=== PATIENT | female | born 1965 | race Caucasian/White ===

== ENCOUNTER 2016-06-01 23:14 | Emergency (ER) | payer SELFPAY ==
[~2016-06-01] VITALS: Ht 172.7 cm; Wt 6.0 kg
[~2016-06-01 23:14] MED LIST: Z.0.NO CURRENT MEDS
[2016-06-01] MEDS ORDERED: SODIUM CHLOR 0.9% 1000 ML INJ 1,000 ML IV SCH (23:26)
[2016-06-01] MEDS ORDERED: LORazepam 2 MG/ML VIAL IV PUSH ONE (23:30)
[2016-06-01] MEDS ORDERED: MORPHINE SULFATE 4 MG/ML INJ IV PUSH ONE (23:30)
[2016-06-01] MEDS ORDERED: ONDANSETRON HCL 4 MG/2 ML VIAL IVP ONE (23:30)
[2016-06-01] MEDS ORDERED: SODIUM CHLORIDE 0.9% FLUSH 5 ML FLUSH IVF PRN (23:30)
[2016-06-01] MEDS ORDERED: NAPR220T95 PO (23:32)
--- NOTE | 2016-06-01 23:33 | PD ---
HPI . Abdominal pain Chief Complaint: Abdominal Pain Time Seen by Provider: 23:16 Travel History International Travel<30 days: No Contact w/Intl Traveler<30days: No History of Present Illness HPI Patient presents to us via [facility] with the chief complaint of left lower quadrant abdominal pain. She states that it started acutely at couple of hours ago. States that she had a bit of an upset stomach earlier and not had a bowel movement today so she took a Dulcolax. It was about 3 hours after that that she developed the left lower quadrant abdominal pain. She reports associated nausea. She denies fever. The pain comes and goes. She states that it feels very similar to pain that she had before associated with diverticulitis. PFSH Past Medical History Diminished Hearing: No Diverticulitis: Yes Menopausal: Yes Tubal Ligation: Yes Social History Alcohol Use: Yes (OCCASIONAL) Tobacco Use: Yes (1 PPD) Substance Use: Yes Allergies-Medications (Allergen,Severity, Reaction): Coded Allergies: Dilantin (Verified Allergy, Severe, 07/25/12) Soma (Verified Allergy, Severe, RASH, 07/25/12) Reported Meds & Prescriptions Reported Meds & Active Scripts Active Reported No Current Meds (Miscellaneous Medication) Misc Review of Systems Except as stated in HPI: all other systems reviewed are Neg General / Constitutional: No: Fever, Chills Gastrointestinal: Positive: Nausea, Abdominal Pain, No: Vomiting, Diarrhea Genitourinary: No: Urgency, Frequency, Dysuria Physical Exam Narrative GENERAL: This is an extremely histrionic woman. SKIN: Warm and dry. HEAD: Atraumatic. Normocephalic. EYES: Pupils equal and round. ENT: No nasal bleeding or discharge. Mucous membranes pink and moist. NECK: Trachea midline. Neck is supple. CARDIOVASCULAR: Regular rate and rhythm. Heart sounds are normal. RESPIRATORY: No accessory muscle use. Lungs are clear with full air movement throughout. GASTROINTESTINAL: Abdomen soft. Left lower quadrant tenderness. Nondistended. Positive bowel sounds. MUSCULOSKELETAL: No obvious deformities. No edema. NEUROLOGICAL: Awake and alert. No obvious cranial nerve deficits. Motor grossly within normal limits. Normal speech. PSYCHIATRIC: Histrionic behavior. Data Data Orders Complete Blood Count With Diff (06/01/16 23:26) Comprehensive Metabolic Panel (06/01/16 23:26) Lipase (06/01/16 23:26) Urinalysis - C+S If Indicated (06/01/16 23:26) Ct Abd/Pel W Iv Contrast(Rout) (06/01/16 23:26) Iv Access Insert/Monitor (06/01/16 23:26) Ecg Monitoring (06/01/16 23:26) Oximetry (06/01/16 23:26) Morphine Inj (Morphine Inj) (06/01/16 23:30) Ondansetron Inj (Zofran Inj) (06/01/16 23:30) Sodium Chlor 0.9% 1000 Ml Inj (Ns 1000 M (06/01/16 23:26) Sodium Chloride 0.9% Flush (Ns Flush) (06/01/16 23:30) Lorazepam Inj (Ativan Inj) (06/01/16 23:30) MDM Medical Decision Making Medical Screen Exam Complete: Yes Emergency Medical Condition: Yes Medical Record Reviewed: Yes (history of previous substance abuse) Differential Diagnosis Differential diagnosis of abdominal pain includes but is not limited to gastritis, pancreatitis, hepatitis, gastroenteritis, gallbladder disease, constipation, urinary retention, UTI, peptic ulcer disease, diverticulitis or appendicitis Narrative Course Patient presents by [facility] for the evaluation of left lower quadrant abdominal pain. I have ordered IV fluids, IV pain medication, IV anti-emetic and IV Ativan. Her care will be turned over to Dr. Sanders pending her workup. Diagnosis Primary Impression: Abdominal pain Qualified Code: R10.32 - Left lower quadrant pain Larisa Fountain MD Jun 01, 2016 23:33
[2016-06-01 23:39] VITALS: BP 110/64; PULSE 64; RESP 18; TEMP 97.6; O2SAT 99
[2016-06-01 23:41] VITALS: O2SAT 99
[2016-06-01 23:45] LABS: AUTOMATED NEUTROPHIL # 3.7 TH/MM3 (1.8-7.7); BASOPHIL # 0.1 TH/MM3 (0-0.2); BASOPHIL % 2.1 % (0.0-2.0); EOSINOPHIL # 0.1 TH/MM3 (0-0.4); EOSINOPHIL % 2.1 % (0.0-4.0); HEMATOCRIT 37.5 % (35.0-46.0); HEMO FLAGS DIFF FINAL; LYMPH % 31.8 % (9.0-44.0); LYMPHOCYTE # 2.1 TH/MM3 (1.0-4.8); MEAN CELL VOLUME 93.3 FL (80.0-100.0); MEAN CORPUSCULAR HEMOGLOBIN 31.4 PG (27.0-34.0); MEAN CORPUSCULAR HGB CONC 33.6 % (32.0-36.0); MONO % 8.4 % (0.0-8.0); NEUT % 55.6 % (16.0-70.0); PLATELET COUNT 170 TH/MM3 (150-450); RED BLOOD COUNT 4.01 MIL/MM3 (4.00-5.30); RED CELL DISTRIBUTION WIDTH 12.8 % (11.6-17.2); WHITE BLOOD COUNT 6.6 TH/MM3 (4.0-11.0)
[2016-06-01] MEDS ORDERED: CIPROFLOXACIN 400 MG PREMIX 200 ML IV ONE (23:45)
[2016-06-01] MEDS ORDERED: metroNIDAZOLE 500 MG INJ 100 ML IV ONE (23:45)
[2016-06-02 00:14] VITALS: BP 82/44; PULSE 75; RESP 16; O2SAT 96
[2016-06-02] MEDS ORDERED: SODIUM CHLOR 0.9% 1000 ML INJ 1,000 ML IV SCH (00:15)
[2016-06-02 00:48] LABS: CHLORIDE 112 MEQ/L (98-107); POTASSIUM 3.7 MEQ/L (3.5-5.1); SODIUM (NA) 146 MEQ/L (136-145)
[2016-06-02 00:51] VITALS: BP 86/46; PULSE 70; RESP 16; O2SAT 100
[2016-06-02 00:51] LABS: ANION GAP 8 MEQ/L (5-15); BICARBONATE 25.7 MEQ/L (21.0-32.0)
[2016-06-02 00:52] LABS: BLOOD UREA NITROGEN 30 MG/DL (7-18)
[2016-06-02 00:54] LABS: ALT (GPT) 21 U/L (10-53); AST (GOT) 18 U/L (15-37)
[2016-06-02 00:55] LABS: GLOMERULAR FILTRATION RATE 61 ML/MIN (>89)
[2016-06-02 00:56] VITALS: BP 95/44; PULSE 80; RESP 16; O2SAT 100
[2016-06-02 00:56] LABS: TOTAL BILIRUBIN ADULT 0.3 MG/DL (0.2-1.0)
[2016-06-02 00:57] LABS: ALKALINE PHOSPHATASE 76 U/L (45-117)
[2016-06-02 01:14] VITALS: BP 102/60
[2016-06-02] MEDS ORDERED: IOHEXOL 350 MG/ML 10 ML VIAL (for RAD DIAG) IV ONE (01:33)
--- NOTE | 2016-06-02 01:50 | RADHPO ---
EXAM DATE/TIME: 06/02/2016 01:17 [facility] COMPARISON: No previous studies available for comparison. INDICATIONS : Bilateral abdominal pain. IV CONTRAST: 100 cc Omnipaque 350 (iohexol) IV ORAL CONTRAST: No oral contrast ingested. RADIATION DOSE: 9.07 CTDIvol (mGy) MEDICAL HISTORY : Diverticulitis. SURGICAL HISTORY : Tubal ligation. ENCOUNTER: Initial ACUITY: 1 day PAIN SCALE: 4/10 LOCATION: Bilateral Abdomen. TECHNIQUE: Volumetric scanning of the abdomen and pelvis was performed. Using automated exposure control and ad justment of the mA and/or kV according to patient size, radiation dose was kept as low as reasonably achievable to obtain optimal diagnostic quality images. FINDINGS: There is minimal basilar atelectasis. Mild fatty liver. No acute findings in the liver, spleen, adren als, kidneys or pancreas. No calcified gallstones or biliary ductal dilatation. No free fluid or free air. No bowel obstruction. Mild colonic ileus with some air fluid levels in the transverse colon. CONCLUSION: 1. Mild ileus. Mild fatty liver. CT abdomen and pelvis otherwise unremarkable. Yusuf Delgado MD on June 02, 2016 at 1:42 Board Certified Radiologist. This report was verified electronically.
--- NOTE | 2016-06-02 02:05 | PD ---
Physical Exam Time Seen by Provider: 02:[address] Rogers left this patient with me to check the results of the CT abdomen/ pelvis and make a disposition, likely discharge. Data Data Last Documented VS Vital Signs Date Time Temp Pulse Resp B/P Pulse Ox O2 Delivery O2 Flow Rate FiO2 06/02/16 01:14 102/60 06/02/16 00:56 80 16 100 Nasal Cannula 2 06/01/16 23:39 97.6 Orders Complete Blood Count With Diff (06/01/16 23:26) Comprehensive Metabolic Panel (06/01/16 23:26) Lipase (06/01/16 23:26) Urinalysis - C+S If Indicated (06/01/16 23:26) Iv Access Insert/Monitor (06/01/16 23:26) Ecg Monitoring (06/01/16 23:26) Oximetry (06/01/16 23:26) Morphine Inj (Morphine Inj) (06/01/16 23:30) Ondansetron Inj (Zofran Inj) (06/01/16 23:30) Sodium Chlor 0.9% 1000 Ml Inj (Ns 1000 M (06/01/16 23:26) Sodium Chloride 0.9% Flush (Ns Flush) (06/01/16 23:30) Lorazepam Inj (Ativan Inj) (06/01/16 23:30) Ciprofloxacin 400 Mg Premix (Cipro 400 M (06/01/16 23:45) Metronidazole 500 Mg Inj (Flagyl 500 Mg (06/01/16 23:45) Sodium Chlor 0.9% 1000 Ml Inj (Ns 1000 M (06/02/16 00:15) Ct Abd/Pel W Iv Contrast(Rout) (06/02/16 01:30) Iohexol 350 Inj (Omnipaque 350 Inj) (06/02/16 01:33) Labs Laboratory Tests Test 06/01/16 23:30 White Blood Count 6.6 TH/MM3 Red Blood Count 4.01 MIL/MM3 Hemoglobin 12.6 GM/DL Hematocrit 37.5 % Mean Corpuscular Volume 93.3 FL Mean Corpuscular Hemoglobin 31.4 PG Mean Corpuscular Hemoglobin 33.6 % Concent Red Cell Distribution Width 12.8 % Platelet Count 170 TH/MM3 Mean Platelet Volume 10.5 FL Neutrophils (%) (Auto) 55.6 % Lymphocytes (%) (Auto) 31.8 % Monocytes (%) (Auto) 8.4 % Eosinophils (%) (Auto) 2.1 % Basophils (%) (Auto) 2.1 % Neutrophils # (Auto) 3.7 TH/MM3 Lymphocytes # (Auto) 2.1 TH/MM3 Monocytes # (Auto) 0.6 TH/MM3 Eosinophils # (Auto) 0.1 TH/MM3 Basophils # (Auto) 0.1 TH/MM3 CBC Comment DIFF FINAL Differential Comment Sodium Level 146 MEQ/L Potassium Level 3.7 MEQ/L Chloride Level 112 MEQ/L Carbon Dioxide Level 25.7 MEQ/L Anion Gap 8 MEQ/L Blood Urea Nitrogen 30 MG/DL Creatinine 0.96 MG/DL Estimat Glomerular Filtration 61 ML/MIN Rate Random Glucose 94 MG/DL Calcium Level 7.9 MG/DL Total Bilirubin 0.3 MG/DL Aspartate Amino Transf 18 U/L (AST/SGOT) Alanine Aminotransferase 21 U/L (ALT/SGPT) Alkaline Phosphatase 76 U/L Total Protein 6.2 GM/DL Albumin 3.3 GM/DL Lipase 115 U/L [facility] Medical Record Reviewed: Yes Supervised Visit with KARINA: Yes Interpretation(s) The CT abdomen/pelvis shows mild ileus, mild fatty liver but is otherwise unremarkable. The CBC is normal. The complete metabolic profile shows a sodium of 146, BUN 30, GFR 61, calcium 7.9, total protein of 6.2 and albumin of 3.3 but is otherwise unremarkable. The lipase is normal. Differential Diagnosis Diverticulitis, ileus, small bowel obstructionhighly unlikely, dehydration, electrolyte disorder, post laxative ileus Narrative Course The patient appears to have a mild ileus. She also has dehydration. She has left lower quadrant tenderness and may have a diverticulitis as well. The patient's high sodium likely represents dehydration along with her elevated BUN. It is now 0-11 and the patient is sleeping comfortably and is being hydrated. Diagnosis Primary Impression: Abdominal pain Qualified Code: R10.32 - Left lower quadrant pain Additional Impressions: Moderate dehydration Ileus Matt Sanders MD Jun 02, 2016 02:05
[2016-06-02 03:09] VITALS: BP 108/56; PULSE 64; RESP 16; O2SAT 99
== END 2016-06-02 04:28 | disposition home or self-care (01) ==
LOC: PHED 23:14
DX: R10.32 Left lower quadrant pain (principal); R11.0 Nausea; F17.210 Nicotine dependence, cigarettes, uncomplicated; E86.0 Dehydration; K56.7 Ileus, unspecified
CPT/HCPCS: 74177; 80053; 83690; 85025; 96365; 96367; 96375; 99284; J0744; J2060; J2270; J2405; J7030; Q9967

== ENCOUNTER 2016-07-10 19:17 | Emergency (ER) | payer SELFPAY ==
[~2016-07-10 19:17] MED LIST changes: +NAPR220T95 PO; -Z.0.NO CURRENT MEDS
[2016-07-10] MEDS ORDERED: TETANUS/DIPHTHERIA TOXOID ADULT 0.5 ML VIAL IM ONE (19:30)
[2016-07-10 19:36] VITALS: BP 118/67; PULSE 70; RESP 20; TEMP 97.7; O2SAT 97
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
== END 2016-07-10 20:33 | disposition home or self-care (01) ==
LOC: PHEFT 19:17
DX: S59.911A Unspecified injury of right forearm, initial encounter (principal); S00.83XA Contusion of other part of head, initial encounter; F10.120 Alcohol abuse with intoxication, uncomplicated; F17.200 Nicotine dependence, unspecified, uncomplicated; Z23 Encounter for immunization; W45.8XXA Other foreign body or object entering through skin, initial encounter
CPT/HCPCS: 90471; 90714